=== PATIENT | male | born 1940 | race Caucasian/White ===

== ENCOUNTER 2023-11-02 18:39 | Emergency (ER) | payer MEDICARE, OTHER, SELFPAY ==
[2023-11-02 18:41] VITALS: BP 156/110
[2023-11-02 19:29] VITALS: BMI 35.6
[2023-11-02 19:41] VITALS: BP 149/62
--- NOTE | 2023-11-02 19:44 | ED.GENMED ---
History of Present Illness
General
Chief Complaint: DVT/Possible Blood Clot
Source: patient
Exam Limitations: none
Time Seen by Provider: 11/02/23 19:09
Travel History
Have you had any contact with someone who has COVID-19?: No
Do you have any symptoms of coronavirus? Fever > 100 degrees, chills, cough, shortness of breath, sore throat, loss of taste or smell, muscle aches, or headache?: No
History of Present Illness
History of Present Illness:
This is a 83 year old male that comes in with c/o pain in the left leg. States that on Monday he was walking out of the store when he started with light pain in the calf that went down to the foot. States that this subsided. Then yesterday the pain
came back and has continued to get worse. States that the PCP told him to come to the ER and get an US. States that there was no injury. However, states that he was doing squats in the shower on Monday when this started. Denies any fever, chills,
chest pain, SOB, abd pain, nausea, vomiting, diarrhea, headache, dizziness, urinary burning.
Past History
Past History
ED Past Medical History: Cancer (Prostate), COPD, CVA, HTN, Hypercholesterolemia, NIDDM and Other (Renal calculus, Glaucma, )
ED Past Surgical History: Cardiac (Stent X 1) and Other (Sinus surgery, Cataracts)
Social History
Tobacco: Former smoker
Alcohol: Occasional
Drug: None
Personal:
Living: with family
Review of Systems
Review of Systems
All Other Systems: ROS reviewed and negative except as documented in HPI and ROS
Constitutional: Reports no symptoms; Denies fever or chills
EENT: Reports no symptoms
Respiratory: Reports no symptoms; Denies cough or trouble breathing
Cardiac: Reports no symptoms; Denies chest pain
ABD/GI: Reports no symptoms; Denies abdominal pain, nausea, vomiting or diarrhea
: Reports no symptoms; Denies dysuria, frequency or urgency
Musculoskeletal: Reports other (Left leg pain in calf down to foot)
Skin: Reports no symptoms
Neurological: Reports no symptoms; Denies dizzy or headache
Psychiatric: Reports no symptoms
Phy Exam
General Physical Exam
General Presentation: well appearing and no apparent distress
General age: appears stated age
General Skin: warm and dry
General Habitus: elderly
General Mental: alert
General Hydration: appears well hydrated
ENT Exam
ENT Exam: pharynx normal and neck supple
Eye Exam
Eye Exam: EOMI
Cardiovascular Exam
Cardiovascular Exam: regular rate/rhythm and normal peripheral pulses
Pulmonary Exam
Pulmonary Exam: lungs clear, no respiratory distress, no rales, chest non tender, no crackles, no rhonchi, no wheezing and no cough
Gastrointestinal Exam
Gastrointestinal Exam: normal bowel sounds, non tender, soft, no organomegaly, no pulsatile mass and non distended
Musculoskeletal Exam
Musculoskeletal Exam: full ROM and other (Slight swelling of the left lower calf. Negative for any discomfort with palpation of the heel or calf. )
Skin Exam
Skin Exam: normal color, warm/dry, no rash, no petechia and other (Light Contusion noted on the medial aspect of the mid calf down into the heel. )
Psychiatric Exam
Psychiatric Exam: normal mood/affect
Course
Orders/Labs/Results
Orders:
Orders
11/02/23 19:44
US Legs, Left [US Periph Venous LOWER Ext LT] Urgent
Comment:
Reason For Exam: Pain and swelling
Vital Signs
Initial and Last Documented VS:
Initial Vital Signs
Temp Pulse Resp BP Pulse Ox
97.5 F 58 18 156/110 99
11/02/23 18:41 11/02/23 18:41 11/02/23 18:41 11/02/23 18:41 11/02/23 18:41
Last Documented Vital Signs
Temp Pulse Resp BP Pulse Ox
97.5 F 56 18 149/62 97
11/02/23 18:41 11/02/23 19:41 11/02/23 19:41 11/02/23 19:41 11/02/23 19:41
MDM/Problems Addressed
Differential Diagnosis Includes:
Contusion. Muscle pull, DVT
MDM/Problems Addressed:
This is a 83 year old male that comes in with c/o left leg pain. States that on Monday after walking out of a store he had slightly pain in the left leg. State that this went away. Then yesterday the pain came back and has continued to get worse.
States that he is taking Plavix.
Will lget US.
Back over to see patient and . Explained that the US is negative for any DVT. This is most likely a pulled muscle and the bruising is due to him being on a blood thinner. Patient can use heat or ice to the leg. Elevate the leg when sitting
around. Tylenol 1000mg every 6 hours for pain. Patient states that he has an appointment with the manufacture specialist on Monday.
Chronic conditions affecting care:
NA
Acute Exacerbation and/or Progression of Chronic Illness:
NA
*Radiology
Radiology exam reviewed: radiology read reviewed (US- No sonographic evidence for left lower extremity dep venous thrombosis. )
*Pulse Oximetry
Patient hypoxic: no
*EKG
Interpreted by ED Provider?: NA
Rate: EKG- N/A
*Manager Ambulatory Interpretation
Rate: Manager Ambulatory- N/A
*Critical Care Note
Total Time (30-74mins, 75-104mins- exclusive of procedures): Not Applicable
ED Attending Note
-
Portions of this chart may have been created with voice recognition software.� Occasional wrong word or��sound alike� substitutions may have occurred due to the inherent limitations of voice recognition software.
Discharge Plan
Departure
Patient Disposition: Home (Routine Discharge)
Date of Disposition: 11/02/23
Time of Disposition: 21:15
Patient with high blood pressure during this ER visit?: Yes
Condition: Good
Covid-19: Not Applicable
Discharge Problem:
Contusion of left lower leg
Instructions: Contusion (DC), BLOOD PRESSURE
Prescriptions:
No Action
acetaminophen [Tylenol Extra Strength] 500 mg Tablet
1,000 mg PO BID
pioglitazone [Actos] 30 mg Tablet
30 mg PO DAILY
clopidogrel [Plavix] 75 mg Tablet
75 mg PO DAILY
aspirin 81 mg Tablet
81 mg PO DAILY
fluticasone propionate 50 mcg/actuation [place],Suspension
1 spray INTRANASAL HS
lansoprazole 15 mg Capsule,Delayed Release(Dr/Ec)
15 mg PO BID
latanoprost 0.005 % Drops
1 drp OPHTHALMIC (EYE) HS
ipratropium bromide 42 mcg (0.06 %) [place],Non-Aerosol
2 spray INTRANASAL BID
cyanocobalamin (vitamin B-12) 25 mcg Tablet
25 mcg PO DAILY
timolol maleate 0.5 % Drops, Once Daily
1 drp OPHTHALMIC (EYE) BID
cholecalciferol (vitamin D3) [Vitamin D3] 50 mcg (2,000 unit) Capsule
50 mcg PO DAILY
furosemide 40 mg tablet
40 mg PO DAILY Qty: 90 3RF
valsartan 320 mg tablet
320 mg PO DAILY Qty: 90 3RF
Rx Instructions:
Please note adjusted medication
nitroglycerin 0.4 mg tablet, sublingual
0.4 mg sublingual [id number] PRN (Reason: chest pain) Qty: 25 2RF
metoprolol succinate [Toprol XL] 25 mg Tablet Extended Release 24 Hr
12.5 mg PO DAILY
fluoxetine 40 mg Capsule
40 mg PO DAILY
atorvastatin 40 mg Tablet
40 mg PO HS
potassium chloride 20 mEq tablet extended release
20 meq PO BID
bicalutamide 50 mg Tablet
50 mg PO DAILY
Referrals:
Dorothy Ramirez MD [Family Provider] - As needed
Activity Restrictions/Additional Instructions:
As discussed, your Ultrasound is negative for DVT. This is most likely a pulled muscle that has caused some bruising. Please elevate the left when sitting around. Heat or ice to the leg which ever makes you feel better. Tylenol 1000mg every 6 hours
for pain. Follow up with the manufacture specialist as scheduled on Monday. IF YOU HAVE ANY OTHER CONCERNS PLEASE RETURN TO THE EMERGENCY ROOM.
Interventions
Interventions:
*Risk Screen - Suicide Last Done: 11/02/23 18:41
*General Assessment Last Done: 11/02/23 18:41
*Neglect/Abuse Screening Last Done: 11/02/23 18:41
ED- Fall Risk Assessment Last Done: 11/02/23 19:29
*ED COVID-19 Vaccine History Last Done: 11/02/23 18:41
ED- Cardiac Assessment Last Done: 11/02/23 19:29
ED- Pulmonary Assessment Last Done: 11/02/23 19:29
ED-Peripheral Vascular Assessment Last Done: 11/02/23 19:29
ED-Skin Assessment Last Done: 11/02/23 19:29
== END 2023-11-02 21:27 | disposition home or self-care (01) ==
LOC: EMR 18:39
PROVIDERS: EMERGENCY PHYSICIAN Emergency Medicine; FAMILY PHYSICIAN Family Medicine
DX: S80.12XA Contusion of left lower leg, initial encounter (principal); Y93.01 Activity, walking, marching and hiking; M79.605 Pain in left leg; J44.9 Chronic obstructive pulmonary disease, unspecified; I10 Essential (primary) hypertension; E78.00 Pure hypercholesterolemia, unspecified; E11.36 Type 2 diabetes mellitus with diabetic cataract; Z86.73 Personal history of transient ischemic attack (TIA), and cerebral infarction without residual deficits; Z87.442 Personal history of urinary calculi; Z87.891 Personal history of nicotine dependence; Z95.5 Presence of coronary angioplasty implant and graft
CPT/HCPCS: 99283; 93971

== ENCOUNTER → 2023-11-15 09:49 | Outpatient (REF) | payer MEDICARE, OTHER, SELFPAY ==
[2023-11-15 10:32] LABS: % Basophils 0.6 % (0-2); % Eosinophils 3.6 % (0-6); % Immature Granulocytes 0.4 % (0-0.5); % Lymphocytes 30.4 % (20.5-51.1); % Monocytes 8.1 % (1.7-9.3); % Neutrophils 56.9 % (42.2-75.2); Absolute Eosinophils 0.2 10^3/uL (0-0.7); Absolute Lymphocytes 1.6 10^3/uL (1.2-3.4); Absolute Monocytes 0.4 10^3/uL (0.1-0.6); Hematocrit 31.4 % (39.0-52.0); Hemoglobin 10.8 g/dL (13.0-18.0); Mean Corp Hgb Conc. 34.4 g/dL (33.0-37.0); Mean Corpuscular Hgb 32.7 pg (27.0-31.0); Mean Corpuscular Volume 95.2 fL (80.0-94.0); Mean Platelet Volume 9.4 fL (7.4-10.4); Nucleated Red Blood Cells % 0 % (-); Platelet Count 203 10^3/uL (130-400); Red Cell Dist. Width 13.1 % (11.5-14.5); White Blood Cell Count 5.3 10^3/uL (4.8-10.8)
[2023-11-15 11:27] LABS: ALT (SGPT) 13 U/L (0-50); AST (SGOT) 19 U/L (17-59); Albumin 3.9 g/dl (3.5-5.0); Alkaline Phosphatase 76 U/L (38-126); Blood Urea Nitrogen 25 mg/dl (9-20); Calcium 7.8 mg/dl (8.4-10.2); Carbon Dioxide 25 mmol/L (22-30); Chloride 106 mmol/L (98-107); Glucose 141 mg/dl (70-99); Iron 76 ug/dl (49-181); Potassium 3.8 mmol/L (3.5-5.1); Sodium 137 mmol/L (135-145); Total Bilirubin 0.6 mg/dl (0.2-1.3); Total Protein 6.1 g/dl (6.3-8.2); eGFR 46.19
[2023-11-15 11:37] LABS: Percent Saturation 20 % (20-50); Total Iron Binding Capacity 363 ug/dl (261-462)
[2023-11-15 13:20] LABS: PSA, Total - Diagnostic 5.83 ng/ml (0.0-4.0)
[2023-11-15 13:25] LABS: Ferritin 36.4 ng/ml (17.9-464.0)
[2023-11-15 13:40] LABS: Vitamin B12 392 pg/ml (239-931)
[2023-11-15 18:07] LABS: Folate 4.1 ng/ml (2.76-20)
== END ==
LOC: REG 09:49
PROVIDERS: ATTENDING PHYSICIAN Family Medicine; FAMILY PHYSICIAN Specialist
DX: C61 Malignant neoplasm of prostate (principal); D53.9 Nutritional anemia, unspecified
CPT/HCPCS: 36415; 80053; 82607; 82728; 82746; 83540; 83550; 84153; 85025

== ENCOUNTER → 2024-01-22 12:31 | Outpatient (REF) | payer MEDICARE, OTHER, SELFPAY ==
[2024-01-22 13:11] LABS: Ionized Calcium 1.19 mMOL/L (1.15-1.33)
[2024-01-22 14:27] LABS: Free T4 0.94 ng/dl (0.78-2.19); Vitamin D, 25-OH*** 43.7 ng/mL (30-80)
[2024-01-22 14:29] LABS: Phosphorus 3.2 mg/dl (2.5-4.5)
[2024-01-22 14:40] LABS: TSH 0.35 uIU/ml (0.47-4.68)
[2024-01-23 09:31] LABS: Intact PTH 79.6 pg/ml (13.6-85.8)
[2024-01-24 22:32] LABS: Total T3 (Sendout) 99 ng/dL (80-200)
== END ==
LOC: REG 12:31
PROVIDERS: ATTENDING PHYSICIAN Family Medicine
DX: E83.51 Hypocalcemia (principal); R79.89 Other specified abnormal findings of blood chemistry
CPT/HCPCS: 36415; 82306; 82330; 83970; 84100; 84439; 84443; 84480

== ENCOUNTER → 2024-01-31 14:47 | Outpatient (REF) | payer MEDICARE, OTHER, SELFPAY | LOC: MRI 3T 14:47 | PROVIDERS: ATTENDING PHYSICIAN Specialist; FAMILY PHYSICIAN Family Medicine | DX: C61 Malignant neoplasm of prostate (principal) | CPT/HCPCS: 72197; A9575 ==

== ENCOUNTER → 2024-03-26 09:55 | Outpatient (REF) | payer MEDICARE, OTHER, SELFPAY ==
[2024-03-26 11:01] LABS: % Basophils 0.6 % (0-2); % Eosinophils 3.2 % (0-6); % Immature Granulocytes 0.4 % (0-0.5); % Lymphocytes 35.9 % (20.5-51.1); % Monocytes 8.9 % (1.7-9.3); Absolute Eosinophils 0.2 10^3/uL (0-0.7); Absolute Lymphocytes 1.9 10^3/uL (1.2-3.4); Absolute Monocytes 0.5 10^3/uL (0.1-0.6); Absolute Neutrophils 2.7 10^3/uL (1.4-6.5); Hematocrit 35.5 % (39.0-52.0); Mean Corp Hgb Conc. 33.8 g/dL (33.0-37.0); Mean Corpuscular Volume 91.7 fL (80.0-94.0); Mean Platelet Volume 9.5 fL (7.4-10.4); Nucleated Red Blood Cells % 0 % (-); Platelet Count 203 10^3/uL (130-400); Red Blood Cell Count 3.87 10^6/uL (4.70-6.10); Red Cell Dist. Width 14.9 % (11.5-14.5); White Blood Cell Count 5.3 10^3/uL (4.8-10.8)
[2024-03-26 11:05] LABS: ALT (SGPT) 12 U/L (0-50); AST (SGOT) 16 U/L (17-59); Albumin 4.4 g/dl (3.5-5.0); Alkaline Phosphatase 70 U/L (38-126); Blood Urea Nitrogen 33 mg/dl (9-20); Calcium 9.6 mg/dl (8.4-10.2); Carbon Dioxide 21 mmol/L (22-30); Chloride 107 mmol/L (98-107); Glucose 131 mg/dl (70-99); HDL Cholesterol 67 mg/dl; LDL Cholesterol, Calculated 45 mg/dl; Sodium 139 mmol/L (135-145); Total Bilirubin 0.6 mg/dl (0.2-1.3); Total Cholesterol 148 mg/dl (50-199); Total Protein 6.6 g/dl (6.3-8.2); Triglyceride 184 mg/dl (10-149); Very Low Density Lipoprotein 36 mg/dl (0-30); eGFR 45.91
[2024-03-26 11:32] LABS: Microalbumin, Random Urine 9.9 mg/dl (0.6-1.7); Microalbumin/creatinine Ratio 103.4 mg/g
[2024-03-26 11:51] LABS: PSA, Total - Diagnostic 9.16 ng/ml (0.0-4.0); TSH 0.53 uIU/ml (0.47-4.68)
[2024-03-26 12:51] LABS: Glycohemoglobin (HgbA1c) 5.9 % (4.0-5.6)
[2024-03-27 17:46] LABS: Total T3 (Sendout) 89 ng/dL (80-200)
== END ==
LOC: REG 09:55
PROVIDERS: ATTENDING PHYSICIAN Specialist; FAMILY PHYSICIAN Family Medicine
DX: C61 Malignant neoplasm of prostate (principal); E11.65 Type 2 diabetes mellitus with hyperglycemia; E78.2 Mixed hyperlipidemia; N18.31 Chronic kidney disease, stage 3a; I10 Essential (primary) hypertension
CPT/HCPCS: 36415; 80053; 80061; 82043; 82570; 83036; 84153; 84439; 84443; 84480; 85025

== ENCOUNTER → 2024-07-30 09:45 | Outpatient (REF) | payer MEDICARE, OTHER, SELFPAY ==
[2024-07-30 12:13] LABS: % Basophils 0.8 % (0-2); % Eosinophils 4.8 % (0-6); % Immature Granulocytes 0.2 % (0-0.5); % Monocytes 9.4 % (1.7-9.3); % Neutrophils 53.8 % (42.2-75.2); Absolute Eosinophils 0.2 10^3/uL (0-0.7); Absolute Lymphocytes 1.5 10^3/uL (1.2-3.4); Absolute Monocytes 0.5 10^3/uL (0.1-0.6); Absolute Neutrophils 2.6 10^3/uL (1.4-6.5); Hematocrit 30.6 % (39.0-52.0); Hemoglobin 10.4 g/dL (13.0-18.0); Mean Corpuscular Hgb 31.7 pg (27.0-31.0); Mean Corpuscular Volume 93.3 fL (80.0-94.0); Mean Platelet Volume 10.2 fL (7.4-10.4); Nucleated Red Blood Cells % 0 % (-); Platelet Count 214 10^3/uL (130-400); Red Blood Cell Count 3.28 10^6/uL (4.70-6.10); Red Cell Dist. Width 13.7 % (11.5-14.5); White Blood Cell Count 4.8 10^3/uL (4.8-10.8)
[2024-07-30 12:40] LABS: ALT (SGPT) 13 U/L (0-50); AST (SGOT) 17 U/L (17-59); Albumin 4.2 g/dl (3.5-5.0); Alkaline Phosphatase 58 U/L (38-126); Blood Urea Nitrogen 29 mg/dl (9-20); Calcium 8.6 mg/dl (8.4-10.2); Carbon Dioxide 22 mmol/L (22-30); Chloride 107 mmol/L (98-107); Glucose 141 mg/dl (70-99); Potassium 4.1 mmol/L (3.5-5.1); Sodium 142 mmol/L (135-145); Total Bilirubin 0.6 mg/dl (0.2-1.3); Total Protein 6.3 g/dl (6.3-8.2); eGFR 54.51
[2024-07-30 13:18] LABS: Glycohemoglobin (HgbA1c) 5.8 % (4.0-5.6)
[2024-07-30 13:29] LABS: Microalbumin, Random Urine 13.4 mg/dl (0.6-1.7); Microalbumin/creatinine Ratio 114.6 mg/g
== END ==
LOC: REG 09:45
PROVIDERS: ATTENDING PHYSICIAN Family Medicine
DX: E11.22 Type 2 diabetes mellitus with diabetic chronic kidney disease (principal); E11.59 Type 2 diabetes mellitus with other circulatory complications; N18.31 Chronic kidney disease, stage 3a; E53.8 Deficiency of other specified B group vitamins; D53.9 Nutritional anemia, unspecified; R79.89 Other specified abnormal findings of blood chemistry
CPT/HCPCS: 36415; 80053; 82043; 82570; 83036; 84443; 85025

== ENCOUNTER → 2024-08-09 14:27 | Outpatient (REF) | payer MEDICARE, OTHER, SELFPAY ==
[2024-08-09 15:51] LABS: PSA, Total - Diagnostic 3.53 ng/ml (0.0-4.0)
== END ==
LOC: REG 14:27
PROVIDERS: ATTENDING PHYSICIAN Specialist; FAMILY PHYSICIAN Family Medicine
DX: C61 Malignant neoplasm of prostate (principal)
CPT/HCPCS: 36415; 84153

== ENCOUNTER → 2024-10-07 13:40 | Outpatient (REF) | payer MEDICARE, OTHER, SELFPAY | LOC: CLAB 13:40 | PROVIDERS: ATTENDING PHYSICIAN Specialist | DX: C61 Malignant neoplasm of prostate (principal); N39.0 Urinary tract infection, site not specified | CPT/HCPCS: 87086 ==

== ENCOUNTER → 2024-10-09 15:53 | Outpatient (REF) | payer MEDICARE, OTHER, SELFPAY ==
[2024-10-09 18:22] LABS: PSA, Total - Diagnostic 6.93 ng/ml (0.0-4.0)
== END ==
LOC: REG 15:53
PROVIDERS: ATTENDING PHYSICIAN Specialist; FAMILY PHYSICIAN Family Medicine
DX: C61 Malignant neoplasm of prostate (principal)
CPT/HCPCS: 36415; 84153

== ENCOUNTER → 2024-11-28 08:50 | Outpatient (REF) | payer MEDICARE, OTHER, SELFPAY ==
[2024-11-28 09:35] LABS: % Basophils 0.8 % (0-2); % Eosinophils 2.6 % (0-6); % Immature Granulocytes 0.4 % (0-0.5); % Lymphocytes 38.2 % (20.5-51.1); % Monocytes 8.7 % (1.7-9.3); % Neutrophils 49.3 % (42.2-75.2); Absolute Eosinophils 0.1 10^3/uL (0-0.7); Absolute Lymphocytes 1.9 10^3/uL (1.2-3.4); Absolute Monocytes 0.4 10^3/uL (0.1-0.6); Absolute Neutrophils 2.5 10^3/uL (1.4-6.5); Hematocrit 37.9 % (39.0-52.0); Hemoglobin 12.8 g/dL (13.0-18.0); Mean Corp Hgb Conc. 33.8 g/dL (33.0-37.0); Mean Corpuscular Hgb 33.4 pg (27.0-31.0); Mean Platelet Volume 9.3 fL (7.4-10.4); Nucleated Red Blood Cells % 0 % (-); Platelet Count 180 10^3/uL (130-400); Red Blood Cell Count 3.83 10^6/uL (4.70-6.10); Red Cell Dist. Width 13.2 % (11.5-14.5)
[2024-11-28 10:34] LABS: ALT (SGPT) 15 U/L (0-50); AST (SGOT) 17 U/L (17-59); Albumin 4.2 g/dl (3.5-5.0); Alkaline Phosphatase 64 U/L (38-126); Blood Urea Nitrogen 27 mg/dl (9-20); Calcium 9.7 mg/dl (8.4-10.2); Carbon Dioxide 25 mmol/L (22-30); Chloride 105 mmol/L (98-107); Glucose 162 mg/dl (70-99); HDL Cholesterol 59 mg/dl; LDL Cholesterol, Calculated 47 mg/dl; Sodium 138 mmol/L (135-145); Total Bilirubin 0.6 mg/dl (0.2-1.3); Total Cholesterol 153 mg/dl (50-199); Total Protein 6.5 g/dl (6.3-8.2); Triglyceride 235 mg/dl (10-149); Very Low Density Lipoprotein 47 mg/dl (0-30); eGFR 54.51
[2024-11-28 10:46] LABS: Glycohemoglobin (HgbA1c) 6.4 % (4.0-5.6)
[2024-11-28 13:06] LABS: Microalbumin, Random Urine 14.3 mg/dl (0.6-1.7)
[2024-11-28 13:24] LABS: Microalbumin/creatinine Ratio 134.1 mg/g
[2024-11-28 13:28] LABS: TSH Reflex To Free T4 0.99 uIU/ml (0.47-4.68)
[2024-11-28 14:00] LABS: Vitamin B12 340 pg/ml (239-931)
[2024-11-28 15:42] LABS: Folate 5.3 ng/ml (2.76-20)
== END ==
LOC: REG 08:50
PROVIDERS: ATTENDING PHYSICIAN Family Medicine
DX: E11.22 Type 2 diabetes mellitus with diabetic chronic kidney disease (principal); E11.59 Type 2 diabetes mellitus with other circulatory complications; N18.31 Chronic kidney disease, stage 3a; I10 Essential (primary) hypertension; H35.033 Hypertensive retinopathy, bilateral; E78.2 Mixed hyperlipidemia; Z86.73 Personal history of transient ischemic attack (TIA), and cerebral infarction without residual deficits; G47.33 Obstructive sleep apnea (adult) (pediatric); D64.9 Anemia, unspecified; Z79.899 Other long term (current) drug therapy
CPT/HCPCS: 36415; 80053; 80061; 82043; 82570; 82607; 82746; 83036; 84443; 85025

== ENCOUNTER → 2025-02-06 12:11 | Outpatient (REF) | payer MEDICARE, OTHER, SELFPAY | LOC: RAD 12:11 | PROVIDERS: ATTENDING PHYSICIAN Specialist; FAMILY PHYSICIAN Family Medicine | DX: N28.1 Cyst of kidney, acquired (principal) | CPT/HCPCS: 74178; Q9967 ==

== ENCOUNTER → 2025-03-05 12:02 | Outpatient (REF) | payer MEDICARE, OTHER, SELFPAY | LOC: REG 12:02 | PROVIDERS: ATTENDING PHYSICIAN Specialist; FAMILY PHYSICIAN Family Medicine | DX: C61 Malignant neoplasm of prostate (principal) | CPT/HCPCS: 36415; 84153 ==

== ENCOUNTER → 2025-04-16 09:56 | Outpatient (REF) | payer MEDICARE, OTHER, SELFPAY ==
[2025-04-16 10:52] LABS: Hematocrit 34.8 % (39.0-52.0); Hemoglobin 12.0 g/dL (13.0-18.0); Mean Corp Hgb Conc. 34.5 g/dL (33.0-37.0); Mean Corpuscular Volume 95.9 fL (80.0-94.0); Nucleated Red Blood Cells % 0 % (-); Platelet Count 192 10^3/uL (130-400); Red Cell Dist. Width 13.3 % (11.5-14.5)
[2025-04-16 12:05] LABS: Glycohemoglobin (HgbA1c) 5.9 % (4.0-5.6)
[2025-04-16 12:42] LABS: Microalb - Urine Creatinine 85.700 mg/dl
[2025-04-16 12:47] LABS: Microalbumin, Random Urine 9.2 mg/dl (0.6-1.7)
[2025-04-16 13:17] LABS: AST (SGOT) 15 U/L (17-59); Albumin 4.3 g/dl (3.5-5.0); Alkaline Phosphatase 52 U/L (38-126); Blood Urea Nitrogen 35 mg/dl (9-20); Calcium 9.6 mg/dl (8.4-10.2); Carbon Dioxide 21 mmol/L (22-30); Chloride 110 mmol/L (98-107); Glucose 129 mg/dl (70-99); HDL Cholesterol 58 mg/dl; LDL Cholesterol, Calculated 42 mg/dl; Potassium 4.5 mmol/L (3.5-5.1); Sodium 137 mmol/L (135-145); Total Protein 6.4 g/dl (6.3-8.2); Very Low Density Lipoprotein 35 mg/dl (0-30); eGFR 49.56
[2025-04-16 13:19] LABS: ALT (SGPT) 13 U/L (0-50)
== END ==
LOC: REG 09:56
PROVIDERS: ATTENDING PHYSICIAN Family Medicine
DX: F39 Unspecified mood [affective] disorder (principal); F10.10 Alcohol abuse, uncomplicated; E11.22 Type 2 diabetes mellitus with diabetic chronic kidney disease; E11.59 Type 2 diabetes mellitus with other circulatory complications; N18.31 Chronic kidney disease, stage 3a; I25.10 Atherosclerotic heart disease of native coronary artery without angina pectoris; I47.10 Supraventricular tachycardia, unspecified
CPT/HCPCS: 36415; 80053; 80061; 82043; 82570; 83036; 85025

== ENCOUNTER → 2025-08-05 09:45 | Outpatient (REF) | payer MEDICARE, OTHER, SELFPAY ==
[2025-08-05 11:57] LABS: PSA, Total - Diagnostic 3.44 ng/ml (0.0-4.0)
== END ==
LOC: REG 09:45
PROVIDERS: ATTENDING PHYSICIAN Specialist; FAMILY PHYSICIAN Family Medicine
DX: C61 Malignant neoplasm of prostate (principal)
CPT/HCPCS: 36415; 84153

== ENCOUNTER → 2025-09-02 11:29 | Outpatient (REF) | payer MEDICARE, OTHER, SELFPAY ==
[2025-09-02 12:22] LABS: Hematocrit 31.6 % (39.0-52.0); Hemoglobin 10.4 g/dL (13.0-18.0); Mean Corp Hgb Conc. 32.9 g/dL (33.0-37.0); Mean Corpuscular Volume 102.3 fL (80.0-94.0); Nucleated Red Blood Cells % 0 % (-); Platelet Count 179 10^3/uL (130-400); Red Cell Dist. Width 13.3 % (11.5-14.5)
[2025-09-02 12:49] LABS: ALT (SGPT) 15 U/L (0-50); AST (SGOT) 16 U/L (17-59); Albumin 4.2 g/dl (3.5-5.0); Alkaline Phosphatase 56 U/L (38-126); Blood Urea Nitrogen 28 mg/dl (9-20); Calcium 8.0 mg/dl (8.4-10.2); Carbon Dioxide 26 mmol/L (22-30); Chloride 108 mmol/L (98-107); Glucose 145 mg/dl (70-99); Potassium 4.7 mmol/L (3.5-5.1); Sodium 140 mmol/L (135-145); Total Protein 6.5 g/dl (6.3-8.2); eGFR 54.17
[2025-09-02 13:52] LABS: Glycohemoglobin (HgbA1c) 6.0 % (4.0-5.9)
== END ==
LOC: REG 11:29
PROVIDERS: ATTENDING PHYSICIAN Family Medicine
DX: E11.22 Type 2 diabetes mellitus with diabetic chronic kidney disease (principal); E11.59 Type 2 diabetes mellitus with other circulatory complications; I12.9 Hypertensive chronic kidney disease with stage 1 through stage 4 chronic kidney disease, or unspecified chronic kidney disease; N18.31 Chronic kidney disease, stage 3a; D64.9 Anemia, unspecified; F10.10 Alcohol abuse, uncomplicated
CPT/HCPCS: 36415; 80053; 83036; 85025

== ENCOUNTER 2025-09-19 06:11 | Day surgery (SDC) | payer MEDICARE, OTHER, SELFPAY ==
[2025-09-19] VITALS (12 sets, daily range): BP systolic 140–163; BP diastolic 59–72; BMI 37.8
[2025-09-19 07:02] LABS: Glucose - Point of Care 144 mg/dl (70-99)
[2025-09-19 10:10] LABS: ACT-LR - POC 298 Seconds (116-155)
--- NOTE | 2025-09-19 10:41 | ITS.CL.PN ---
[employer] [facility] - Procedure Note
Procedure
Procedure Note:
CARDIAC CATHETERIZATION REPORT
Date of Procedure: 09/19/2025
Referring: Dr. Stnaton Jo MD
Indication: anginal chest pain, known coronary artery disease
PROCEDURE(S)
1. left heart catheterization
2. coronary angiography
ACCESS: 6F right radial artery (closure: radial band)
CATHETERS
1. 6F JR4
2. 6F EBU3.75 guide catheter
MODERATE SEDATION: 35 minutes of moderate sedation was utilized. An independent medical genetics director was present to assist with and help manage the patient's level of consciousness and physiologic status.
HEMODYNAMIC DATA
LV 150/17 (EDP 31) mmHg
AO 143/74 (mean 98) mmHg
CORONARY ANGIOGRAPHY
Dominance: Right
LM: large, normal
LAD: large vessel giving rise to several small diagonal branches and wrapping around the apex. There is moderate diffuse disease in the proximal LAD up to 50%.
LCx: gives rise to a moderate caliber high rising OM1, small OM2, moderate caliber branching OM3, and large LPL branch. There is a focal 50% stenosis in the proximal LCx, a widely patent stent in the mid-LCx, and otherwise mild disease only.
RCA: large vessel giving rise to a large marginal branch that supplies the RPDA and several small RPL branches
iFR of LAD
An Omni wire was flushed and zeroed outside the body and then advanced to the left main. The wire introducer was removed and the catheter flushed with saline, after which pressure of the wire and guide were normalized. The wire was advanced to the
mid LAD and iFR recorded at 0.95. On return to the left main, iFR appropriately normalized to ~1.0, confirming lack of wire drift.
iFR of LCx
The Omni wire was renormalized in the left main. The wire was advanced to the mid LCx and iFR recorded at 0.98. On return to the left main, iFR appropriately normalized to ~1.0, confirming lack of wire drift.
RADIATION: dose 870 mGy; DAP 76 Gy*cm2; fluoroscopy time 12 min
CONCLUSIONS
1. Stable to improved nonobstructive coronary artery disease in a right dominant system with negative IFR of the LAD and LCx.
2. Severely elevated LV filling pressure and no aortic stenosis
RECOMMENDATIONS
1. Management of HFpEF with GDMT
2. Aggressive secondary prevention of coronary artery disease
3. If anginal symptoms continue, consideration of empiric treatment for ANOCA
Copy to: Dr. Stanton Jo MD (consumer educator); Dr. Dorothy Ramirez MD (PCP)
Signed: Guevara Kaur MD, PhD
[2025-09-19] MEDS: NSS 1000 IV (13:42)
== END 2025-09-19 14:33 | disposition home or self-care (01) ==
LOC: CATH 06:11
PROVIDERS: ATTENDING PHYSICIAN Student in an Organized Health Care Education/Training Program; FAMILY PHYSICIAN Family Medicine; OTHER PHYSICIAN Student in an Organized Health Care Education/Training Program
DX: I25.119 Atherosclerotic heart disease of native coronary artery with unspecified angina pectoris (principal); I50.32 Chronic diastolic (congestive) heart failure; I12.9 Hypertensive chronic kidney disease with stage 1 through stage 4 chronic kidney disease, or unspecified chronic kidney disease; N18.9 Chronic kidney disease, unspecified; I47.10 Supraventricular tachycardia, unspecified; Z79.899 Other long term (current) drug therapy; Z79.02 Long term (current) use of antithrombotics/antiplatelets
CPT/HCPCS: 93799 ×2; 99152; 99153; 82962; 85347; 93458; C1769; Q9967